=== PATIENT | female | born 1935 | race Caucasian/White ===

== ENCOUNTER 2018-02-03 12:01 | Outpatient (CLI) | payer MEDICARE, OTHER ==
--- NOTE | 2018-02-03 14:58 | RAD ---
THREE VIEW RIGHT SHOULDER: Indication: Fall with pain and injury. FINDINGS: Moderate right AC joint osteoarthritis is present. No fracture or dislocation. Corticated density adj acent the humeral head may be related to sequellae from calcific tendinopathy. IMPRESSION: Osteoarthritis of the right shoulder. No acute fracture or dislocation. POS: [facility]
== END 2018-02-03 12:02 | disposition home or self-care (01) ==
LOC: SCSRAD 12:01
PROVIDERS: ATTEND Nurse Practitioner Family
DX: M25.512 Pain in left shoulder (principal); M19.011 Primary osteoarthritis, right shoulder; W19.XXXA Unspecified fall, initial encounter; I10 Essential (primary) hypertension; Z79.899 Other long term (current) drug therapy
CPT/HCPCS: 36415; 80048; 83036

== ENCOUNTER 2023-02-19 10:09 | Day surgery (SDC) | payer MEDICARE, OTHER ==
[2023-02-19 11:10] LABS: #Eosinphils 0.1 thou/uL (0.0-0.7); #Neutrophils 7.5 thou/uL (1.40-6.50); %Basophils 0.3 % (0.0-1.0); %Eosinophils 0.6 % (0.0-10.0); %Monocytes 9.7 % (0.0-10.0); %Neutrophils 75.1 % (42.0-75.0); Hematocrit 42.6 % (36.0-47.0); Hemoglobin 13.9 g/dL (12.0-16.0); Mean Corpuscular HGB CONC 32.6 g/dL (32.0-36.0); Mean Corpuscular Hemoglobin 32.3 pg (27.0-31.0); Mean Corpuscular Volume 99.1 fl (78.0-98.0); Mean Platelet Volume 10.8 fL (7.4-10.4); Platelet Count 230 10x3/uL (130-400); RBC Distribution Width 14.2 % (11.5-14.5); White Blood Cell (WBC) Count 9.9 10x3/uL (4.8-10.8)
[2023-02-19 11:35] LABS: Anion Gap 16 mmol/L (10-20); BUN (Urea Nitrogen) 20 mg/dL (9.8-20.1); Calc. Creatinine Clearance 0 mL/min (70-130); Calcium 9.2 mg/dL (7.8-10.44); Carbon Dioxide 20 mmol/L (23-31); Chloride 107 mmol/L (98-107); Estimated GFR 57; Glucose 106 mg/dL (83-110); Potassium 4.4 mmol/L (3.5-5.1); Sodium 139 mmol/L (136-145)
[2023-02-19] MEDS ORDERED: Lidocaine 1% PF 5 ML VIAL ONE (13:46)
[2023-02-19] MEDS ORDERED: PROPOFOL 200 MG/20 ML VIAL ONE (13:46)
== END 2023-02-19 15:01 | disposition home or self-care (01) ==
LOC: SDC 10:09
PROVIDERS: ATTEND Internal Medicine Cardiovascular Disease
PROC: 5A2204Z Restoration of Cardiac Rhythm, Single (ICD-10-PCS; principal; 2023-02-19)
DX: I48.0 Paroxysmal atrial fibrillation (principal); I11.0 Hypertensive heart disease with heart failure; I50.32 Chronic diastolic (congestive) heart failure; I44.7 Left bundle-branch block, unspecified; I34.0 Nonrheumatic mitral (valve) insufficiency; I35.8 Other nonrheumatic aortic valve disorders; I42.9 Cardiomyopathy, unspecified; E78.00 Pure hypercholesterolemia, unspecified; Z88.0 Allergy status to penicillin; Z79.1 Long term (current) use of non-steroidal anti-inflammatories (NSAID); Z79.899 Other long term (current) drug therapy
CPT/HCPCS: 80048; 85025; 92960; 93005; 93010; J2704

== ENCOUNTER 2023-02-23 08:40 | Inpatient (IN) | payer MEDICARE, OTHER ==
[2023-02-23] MEDS ORDERED: Amiodarone 150 MG/3 ML VIAL ONE (09:02)
[2023-02-23 09:03] LABS: #Eosinphils 0.1 thou/uL (0.0-0.7); #Monocytes 0.9 thou/uL (0.11-0.59); #Neutrophils 7.6 thou/uL (1.40-6.50); %Basophils 0.4 % (0.0-1.0); %Eosinophils 1.2 % (0.0-10.0); %Lymphocytes 15.2 % (21.0-51.0); %Monocytes 8.9 % (0.0-10.0); %Neutrophils 74.1 % (42.0-75.0); Hematocrit 43.6 % (36.0-47.0); Hemoglobin 14.3 g/dL (12.0-16.0); Mean Corpuscular HGB CONC 32.8 g/dL (32.0-36.0); Mean Corpuscular Hemoglobin 31.9 pg (27.0-31.0); Mean Corpuscular Volume 97.3 fl (78.0-98.0); Mean Platelet Volume 10.5 fL (7.4-10.4); Platelet Count 271 10x3/uL (130-400); RBC Distribution Width 14.2 % (11.5-14.5); Red Blood Cell (RBC) Count 4.48 mill/uL (4.20-5.40); White Blood Cell (WBC) Count 10.2 10x3/uL (4.8-10.8)
[2023-02-23 09:15] LABS: INR-International Normal Ratio 1.9; Prothrombin Time 22.3 sec (12.0-14.7)
[2023-02-23] MEDS ORDERED: Apixaban 5 MG TAB PO SCH (09:15)
[2023-02-23 09:25] LABS: ALT (SGPT) 19 U/L (8-55); AST (SGOT) 17 U/L (5-34); Albumin 3.7 g/dL (3.4-4.8); Alkaline Phosphatase 74 U/L (40-110); Anion Gap 18 mmol/L (10-20); BUN (Urea Nitrogen) 22 mg/dL (9.8-20.1); Bilirubin, Total 1.2 mg/dL (0.2-1.2); Calc. Creatinine Clearance 0 mL/min (70-130); Calcium 9.3 mg/dL (7.8-10.44); Carbon Dioxide 25 mmol/L (23-31); Chloride 102 mmol/L (98-107); Estimated GFR 47; Globulin 3.3 g/dL (2.4-3.5); Glucose 105 mg/dL (83-110); Potassium 3.3 mmol/L (3.5-5.1); Sodium 142 mmol/L (136-145)
[2023-02-23 09:29] LABS: Troponin I 0.061 ng/mL (< 0.028)
[2023-02-23] MEDS ORDERED: Amiodarone 450 MG, Admixture Fee 1 EACH in Dextrose 5% in Water 250 ML IVPB SCH (09:45)
[2023-02-23] MEDS ORDERED: Bisacodyl 10 MG SUPP PR PRN (10:19)
[2023-02-23] MEDS ORDERED: Acetaminophen 325 MG TAB PO PRN (10:19)
[2023-02-23] MEDS ORDERED: Senokot S 8.6-50 MG TAB PO PRN (10:19)
[2023-02-23] MEDS ORDERED: Bisacodyl 5 MG TAB PO PRN (10:19)
[2023-02-23] MEDS ORDERED: Metoprolol Tartrate 25 MG TAB ONE (10:46)
[2023-02-23] MEDS ORDERED: Digoxin 0.5 MG/2 ML AMP ONE (10:46)
[2023-02-23] MEDS ORDERED: Magnesium 2 GM/50 ML(in water) 2 GM in Premix 1 BAG IVPB SCH (11:00)
[2023-02-23] MEDS ORDERED: Furosemide 40 MG/4 ML VIAL ONE (11:04)
[2023-02-23] MEDS ORDERED: Empagliflozin 25 MG TAB PO SCH (11:15)
[2023-02-23 11:39] LABS: Magnesium 1.9 mg/dL (1.6-2.6)
[2023-02-23] MEDS ORDERED: Magnesium 2 GM/50 ML BAG (IN WATER) ONE (12:02)
[2023-02-23] MEDS ORDERED: Potassium Bicarbonate/Cit Ac 20 MEQ TAB ONE ×2 (12:02→13:38)
[2023-02-23] MEDS: Potassium Bicarbonate/Cit Ac 20 MEQ TAB PO SCH ×2 (12:06→14:58)
[2023-02-23 12:29] LABS: Troponin I 0.052 ng/mL (< 0.028)
[2023-02-23 17:06] VITALS: BMI 32.5
[2023-02-23 17:23] LABS: Troponin I 0.062 ng/mL (< 0.028)
[2023-02-23] MEDS ORDERED: Famotidine 20 MG TAB PO SCH (21:00)
[2023-02-23] MEDS: Amiodarone 450 MG in Dextrose 5% in Water 250 ML IVPB SCH (21:03)
[2023-02-23] MEDS: Metoprolol Tartrate 25 MG TAB PO SCH (21:04)
[2023-02-23] MEDS: Apixaban 5 MG TAB PO SCH (21:04)
[2023-02-23] MEDS ORDERED: Rosuvastatin 5 MG TAB PO SCH (22:15)
[2023-02-24 04:59] LABS: #Eosinphils 0.1 thou/uL (0.0-0.7); #Monocytes 0.9 thou/uL (0.11-0.59); #Neutrophils 7.4 thou/uL (1.40-6.50); %Basophils 0.4 % (0.0-1.0); %Eosinophils 1.2 % (0.0-10.0); %Lymphocytes 12.8 % (21.0-51.0); %Monocytes 8.8 % (0.0-10.0); %Neutrophils 76.5 % (42.0-75.0); Hematocrit 46.6 % (36.0-47.0); Hemoglobin 15.1 g/dL (12.0-16.0); Mean Corpuscular HGB CONC 32.4 g/dL (32.0-36.0); Mean Corpuscular Hemoglobin 31.7 pg (27.0-31.0); Mean Corpuscular Volume 97.7 fl (78.0-98.0); Mean Platelet Volume 10.6 fL (7.4-10.4); Platelet Count 224 10x3/uL (130-400); RBC Distribution Width 13.9 % (11.5-14.5); Red Blood Cell (RBC) Count 4.77 mill/uL (4.20-5.40); White Blood Cell (WBC) Count 9.6 10x3/uL (4.8-10.8)
[2023-02-24] MEDS: Furosemide 40 MG/4 ML VIAL SLOW IVP SCH ×2 (05:06→15:16)
[2023-02-24 05:34] LABS: ALT (SGPT) 19 U/L (8-55); AST (SGOT) 17 U/L (5-34); Albumin 3.5 g/dL (3.4-4.8); Alkaline Phosphatase 74 U/L (40-110); Anion Gap 15 mmol/L (10-20); BUN (Urea Nitrogen) 19 mg/dL (9.8-20.1); Bilirubin, Total 1.5 mg/dL (0.2-1.2); Calc. Creatinine Clearance 46 mL/min (70-130); Carbon Dioxide 27 mmol/L (23-31); Chloride 100 mmol/L (98-107); Estimated GFR 53; Globulin 3.1 g/dL (2.4-3.5); Glucose 97 mg/dL (83-110); Protein, Total 6.6 g/dL (5.8-8.1); Sodium 138 mmol/L (136-145)
[2023-02-24] MEDS: Apixaban 5 MG TAB PO SCH ×2 (08:40→21:12)
[2023-02-24] MEDS: Empagliflozin 10 MG TAB PO SCH (08:41)
[2023-02-24] MEDS: Famotidine 20 MG TAB PO SCH (08:42)
[2023-02-24] MEDS: Metoprolol Tartrate 25 MG TAB PO SCH (08:42)
[2023-02-24] MEDS ORDERED: Magnesium Sulfate 3 GM in Sodium Chloride 0.9% 100 ML IVPB SCH (09:15)
[2023-02-24] MEDS: Amiodarone 200 MG TAB PO SCH ×3 (10:17→21:12)
[2023-02-24] MEDS: Amiodarone 450 MG in Dextrose 5% in Water 250 ML IVPB SCH (10:18)
[2023-02-24] MEDS: Potassium Chloride 20 MEQ TAB PO SCH (18:00)
[2023-02-24] MEDS ORDERED: Rosuvastatin 5 MG TAB PO SCH (21:00)
[2023-02-25] MEDS: Amiodarone 450 MG in Dextrose 5% in Water 250 ML IVPB SCH (01:09)
[2023-02-25 05:10] LABS: #Eosinphils 0.1 thou/uL (0.0-0.7); #Monocytes 0.9 thou/uL (0.11-0.59); #Neutrophils 6.4 thou/uL (1.40-6.50); %Basophils 0.5 % (0.0-1.0); %Eosinophils 1.5 % (0.0-10.0); %Lymphocytes 14.2 % (21.0-51.0); %Monocytes 10.7 % (0.0-10.0); %Neutrophils 72.9 % (42.0-75.0); Hematocrit 44.5 % (36.0-47.0); Hemoglobin 14.5 g/dL (12.0-16.0); Mean Corpuscular HGB CONC 32.6 g/dL (32.0-36.0); Mean Corpuscular Hemoglobin 31.9 pg (27.0-31.0); Mean Corpuscular Volume 97.8 fl (78.0-98.0); Platelet Count 248 10x3/uL (130-400); Red Blood Cell (RBC) Count 4.55 mill/uL (4.20-5.40); White Blood Cell (WBC) Count 8.8 10x3/uL (4.8-10.8)
[2023-02-25 07:50] LABS: ALT (SGPT) 15 U/L (8-55); AST (SGOT) 15 U/L (5-34); Albumin 3.6 g/dL (3.4-4.8); Alkaline Phosphatase 70 U/L (40-110); Anion Gap 15 mmol/L (10-20); BUN (Urea Nitrogen) 16 mg/dL (9.8-20.1); Bilirubin, Total 1.3 mg/dL (0.2-1.2); Calc. Creatinine Clearance 49 mL/min (70-130); Calcium 8.7 mg/dL (7.8-10.44); Carbon Dioxide 28 mmol/L (23-31); Chloride 99 mmol/L (98-107); Estimated GFR 63; Globulin 2.9 g/dL (2.4-3.5); Glucose 85 mg/dL (83-110); Potassium 3.3 mmol/L (3.5-5.1); Protein, Total 6.5 g/dL (5.8-8.1); Sodium 139 mmol/L (136-145)
[2023-02-25] MEDS: Famotidine 20 MG TAB PO SCH (09:46)
[2023-02-25] MEDS: Apixaban 5 MG TAB PO SCH (09:46)
[2023-02-25] MEDS: Amiodarone 200 MG TAB PO SCH ×2 (09:46→15:33)
[2023-02-25] MEDS: Potassium Chloride 20 MEQ TAB PO SCH (09:47)
[2023-02-25] MEDS: Empagliflozin 10 MG TAB PO SCH (09:47)
[2023-02-25] MEDS ORDERED: PROPOFOL 200 MG/20 ML VIAL ONE (11:52)
[2023-02-25] MEDS ORDERED: Potassium Chloride 20 MEQ TAB PO SCH (12:00)
[2023-02-25 15:53] VITALS: BP 112/57; TEMP 98.7
[2023-02-25] MEDS ORDERED: Carvedilol 3.125 MG TAB PO SCH (17:00)
[2023-02-25] MEDS ORDERED: Amiodarone 200 MG TAB PO SCH (21:00)
[2023-02-26] MEDS ORDERED: Spironolactone 25 MG TAB PO SCH (08:00)
== END 2023-02-25 18:39 | disposition home or self-care (01) | DRG 308 ==
LOC: ERS 08:40 → ERHOLD 10:16 → 2NO 16:02
PROVIDERS: ADMIT Hospitalist; ATTEND Family Medicine
PROC: 5A2204Z Restoration of Cardiac Rhythm, Single (ICD-10-PCS; principal; 2023-02-25)
DX: I48.0 Paroxysmal atrial fibrillation (principal); I50.43 Acute on chronic combined systolic (congestive) and diastolic (congestive) heart failure; N17.9 Acute kidney failure, unspecified; Z88.0 Allergy status to penicillin; Z79.01 Long term (current) use of anticoagulants; Z79.899 Other long term (current) drug therapy; Z90.710 Acquired absence of both cervix and uterus; Z90.49 Acquired absence of other specified parts of digestive tract; Z98.890 Other specified postprocedural states; I11.0 Hypertensive heart disease with heart failure; E78.5 Hyperlipidemia, unspecified; Z82.49 Family history of ischemic heart disease and other diseases of the circulatory system; I44.7 Left bundle-branch block, unspecified
CPT/HCPCS: 36415; 36416; 71045; 80053; 83735; 83880; 84484; 85025; 85610; 92960; 93005; 93306; J0282; J1160; J1940; J2704; J3475; J3490; J7070

== ENCOUNTER 2023-03-30 08:56 | Day surgery (SDC) | payer MEDICARE, OTHER ==
[2023-03-27 15:59] VITALS: BMI 32.8
[2023-03-27 16:53] LABS: Hematocrit 45.5 % (34.9-44.5); Hemoglobin 14.6 g/dL (12.0-15.5); Mean Corpuscular HGB CONC 32.1 g/dL (32.0-36.0); Mean Corpuscular Hemoglobin 30.8 pg (27.0-33.0); Mean Platelet Volume 11.6 fl (7.4-10.4); Platelet Count 151 10x3/uL (150-450); RBC Distribution Width 15.6 % (11.5-14.5); Red Blood Cell (RBC) Count 4.74 10x6/uL (3.90-5.03); White Blood Cell (WBC) Count 6.7 10x3/uL (3.5-10.5)
[2023-03-27 16:58] LABS: PTT 25.7 sec (22.0-33.0); Prothrombin Time 11.2 sec (9.5-12.1)
[2023-03-27 17:02] LABS: Anion Gap 14 mmol/L (10-20); BUN (Urea Nitrogen) 11 mg/dL (9.8-20.1); Calc. Creatinine Clearance 59 mL/min (70-130); Calcium 8.9 mg/dL (7.8-10.44); Carbon Dioxide 25 mmol/L (23-31); Chloride 107 mmol/L (98-107); Estimated GFR 68; Glucose 105 mg/dL (83-110); Potassium 3.8 mmol/L (3.5-5.1); Sodium 142 mmol/L (136-145)
[2023-03-30] MEDS ORDERED: Gentamicin 80 MG/2 ML VIAL ONE (09:20)
[2023-03-30] MEDS ORDERED: Heparin 10,000 UNITS/ 10 ML VIAL ONE (09:20)
[2023-03-30] MEDS ORDERED: DOPamine 400 MG/D5W 250 ML 250 ML ONE (09:21)
[2023-03-30] MEDS ORDERED: Clindamycin/D5W 900 mg/50 ml Premix Bag ONE (11:30)
[2023-03-30] MEDS ORDERED: LevoFLOXacin D5W 500 mg (100 mL) BAG ONE (11:31)
[2023-03-30] MEDS ORDERED: fentaNYL 50 mcg/mL 1 mL Vial ONE (11:48)
[2023-03-30] MEDS ORDERED: PROPOFOL 200 MG/20 ML VIAL ONE (12:01)
[2023-03-30] MEDS ORDERED: PHENYLEPHRINE-NS 100 MCG/ML 10 ML SYRINGE ONE (12:01)
[2023-03-30] MEDS ORDERED: Lidocaine 1% PF 5 ML VIAL ONE (12:01)
[2023-03-30] MEDS ORDERED: Dexamethasone 20 MG/5 ML VIAL ONE (12:01)
[2023-03-30] MEDS ORDERED: Ondansetron PF 4 MG/2 ML Vial ONE (12:01)
[2023-03-30] MEDS ORDERED: Rocuronium Bromide 10 MG/ML (10ML VIAL) ONE (12:01)
[2023-03-30] MEDS ORDERED: Phenylephrine 10 MG/ML VIAL ONE (12:12)
[2023-03-30] MEDS ORDERED: Iopamidol 370 76% 100 ML VIAL ONE (13:15)
== END 2023-03-30 17:40 | disposition home or self-care (01) ==
LOC: SDC 08:56
PROVIDERS: ATTEND Internal Medicine Cardiovascular Disease
PROC: 0JH606Z Insertion of Pacemaker, Dual Chamber into Chest Subcutaneous Tissue and Fascia, Open Approach (ICD-10-PCS; principal; 2023-03-30)
PROC: 02H73JZ Insertion of Pacemaker Lead into Left Atrium, Percutaneous Approach (ICD-10-PCS; 2023-03-30)
PROC: 02H63JZ Insertion of Pacemaker Lead into Right Atrium, Percutaneous Approach (ICD-10-PCS; 2023-03-30)
DX: I48.19 Other persistent atrial fibrillation (principal); I49.5 Sick sinus syndrome; I44.7 Left bundle-branch block, unspecified; I50.22 Chronic systolic (congestive) heart failure; E78.5 Hyperlipidemia, unspecified; Z95.0 Presence of cardiac pacemaker; Z79.899 Other long term (current) drug therapy; Z88.0 Allergy status to penicillin
CPT/HCPCS: 33208; 33225; 80048; 85027; 85610; 85730; C1898; C1900; C2621; J1100; J1265; J1580; J1644; J1956; J2370; J2405; J2704; J3010; J3490; Q9967

== ENCOUNTER 2023-04-06 07:28 | Day surgery (SDC) | payer MEDICARE, OTHER ==
[2023-04-03 09:37] VITALS: BMI 32.8
[2023-04-06] MEDS ORDERED: Heparin 10,000 UNITS/ 10 ML VIAL ONE (08:59)
[2023-04-06] MEDS ORDERED: DOPamine 400 MG/D5W 250 ML 250 ML ONE (09:00)
[2023-04-06] MEDS ORDERED: Dexamethasone 20 MG/5 ML VIAL ONE (12:55)
[2023-04-06] MEDS ORDERED: PROPOFOL 200 MG/20 ML VIAL ONE (12:55)
[2023-04-06] MEDS ORDERED: PHENYLEPHRINE-NS 100 MCG/ML 10 ML SYRINGE ONE (12:55)
[2023-04-06] MEDS ORDERED: Lidocaine 1% PF 5 ML VIAL ONE (12:55)
[2023-04-06] MEDS ORDERED: Ondansetron PF 4 MG/2 ML Vial ONE (12:55)
== END 2023-04-06 18:07 | disposition home or self-care (01) ==
LOC: SDC 07:28
PROVIDERS: ATTEND Internal Medicine Cardiovascular Disease
PROC: 02583ZZ Destruction of Conduction Mechanism, Percutaneous Approach (ICD-10-PCS; principal; 2023-04-06)
DX: I48.19 Other persistent atrial fibrillation (principal); I50.22 Chronic systolic (congestive) heart failure; I44.7 Left bundle-branch block, unspecified; E78.5 Hyperlipidemia, unspecified; Z88.0 Allergy status to penicillin; Z79.899 Other long term (current) drug therapy
CPT/HCPCS: 93005; 93613; 93650; C1760; 93010; C1894; J1100; J1265; J1644; J2405; J2704

== ENCOUNTER 2023-08-18 08:19 | Emergency (ER) | payer MEDICARE, OTHER | END 2023-08-18 09:31 | disposition home or self-care (01) | LOC: ERS 08:19 | DX: M25.511 Pain in right shoulder (principal); I11.0 Hypertensive heart disease with heart failure; I50.9 Heart failure, unspecified; Z79.899 Other long term (current) drug therapy ==